=== PATIENT | female | born 1950 | race Caucasian/White ===

== ENCOUNTER 2019-08-29 11:02 | Inpatient (IN) ==
[2019-08-29] MEDS ORDERED: *HR* OxyCODONE Immed Rel 5 MG TABLET PO PRN (20:42)
[2019-08-29] MEDS ORDERED: Nicotine 2 MG GUM PO PRN (20:42)
[2019-08-29] MEDS ORDERED: Albuterol 2.5 MG/3 ML NEBULIZER IH PRN (20:42)
[2019-08-29] MEDS ORDERED: NON-FORMULARY MEDICATION 1 EACH EACH (Naloxone 4 MG) NS SCH (20:45)
[2019-08-29] MEDS ORDERED: ERTAPENEM 1 GM IV SCH (20:45)
[2019-08-29] MEDS ORDERED: Ondansetron ODT 4 MG TAB.RAPDIS SL PRN (20:48)
[2019-08-29] MEDS ORDERED: Vancomycin 750 MG VIAL IVPB SCH (21:00)
[2019-08-29] MEDS: Melatonin 3 MG TABLET PO SCH (21:36)
[2019-08-29] MEDS: Aspirin Enteric Coated 81 MG Tablet PO SCH (21:36)
[2019-08-29] MEDS: Pregabalin 50 MG CAPSULE PO SCH (21:37)
[2019-08-29] MEDS: *HR* OxyCODONE Immed Rel 5 MG TABLET PO PRN (21:38)
[2019-08-29] MEDS: traZODone 50 MG TABLET PO SCH (21:38)
[2019-08-29] MEDS: Ibuprofen 600 MG TABLET PO PRN (21:55)
[2019-08-29] MEDS: Vancomycin Oral Soln 125 MG/2.5 ML UDC PO SCH (22:17)
[2019-08-30] MEDS: Ibuprofen 600 MG TABLET PO PRN ×2 (06:03→20:47)
[2019-08-30] MEDS: *HR* OxyCODONE Immed Rel 5 MG TABLET PO PRN ×4 (06:03→20:47)
[2019-08-30] MEDS ORDERED: Naloxone 0.4 MG/ML INJ IVP PRN (07:41)
[2019-08-30 08:30] LABS: Basophils # 0.1 K/mcL (0.0-0.2); Basophils % 1.1 %; Eosinophils # 1.9 K/mcL (0.0-0.6); Eosinophils % 28.9 %; Hematocrit 39.5 % (35.3-44.9); Hemoglobin 12.3 g/dL (11.5-15.4); Immature Granulocytes % 0.2 % (0-4); Lymphocytes # 1.9 K/mcL (0.6-4.6); Lymphocytes % 27.9 %; Mean Corpuscular HGB Conc 31.1 g/dL (31.6-35.5); Mean Corpuscular Hemoglobin 27.2 pg (28.0-33.3); Mean Corpuscular Volume 87.4 fL (83.0-100.0); Mean Platelet Volume 10.2 fL (9.4-12.4); Monocytes # 0.6 K/mcL (0.0-1.3); Monocytes % 9.7 %; Neutrophils # 2.1 K/mcL (1.6-8.9); Platelet Count 289 K/mcL (140-400); Red Blood Count 4.52 M/mcL (3.82-4.97); Red Cell Distribution Width 16.9 % (11.5-14.5); Segmented Neutrophils % 32.2 %; White Blood Count 6.6 K/mcL (4.3-11.1)
[2019-08-30] MEDS ORDERED: hydroCHLOROthiazide 25 MG TABLET PO SCH (09:00)
[2019-08-30 09:20] LABS: Alanine Aminotransferase 27 Units/L (7-52); Albumin 4.2 g/dL (3.5-5.7); Albumin/Globulin Ratio 1.2 (1.1-2.2); Alkaline Phosphatase 115 Units/L (34-104); Aspartate Amino Transferase 26 Units/L (13-39); BUN/Creatinine Ratio 20 (6-26); Bilirubin,Total 0.4 mg/dL (0.3-1.0); Blood Urea Nitrogen 20 mg/dL (8-23); Calcium 10.5 mg/dL (8.6-10.3); Carbon Dioxide 28 mEq/L (23-29); Chloride 101 mEq/L (98-107); Globulin 3.5 g/dL (2.4-3.5); Glucose 103 mg/dL (70-105); Magnesium 2.2 mg/dL (1.6-2.6); Osmolality,Calculated 289 (280-300); Phosphorous 4.4 mg/dL (2.7-4.5); Potassium 4.1 mEq/L (3.5-5.1); Sodium 138 mEq/L (136-145); Total Protein 7.7 g/dL (6.4-8.9); eGFR For African Americans > 60 (> 60); eGFR For Non-African Americans 57 (> 60)
[2019-08-30] MEDS: Isosorbide MONOnitrate (24 HR) 60 MG TAB.ER.24H PO SCH (09:55)
[2019-08-30] MEDS: Venlafaxine XR (24 HR) 37.5 MG CAP.ER.24H PO SCH (09:55)
[2019-08-30] MEDS: Pregabalin 50 MG CAPSULE PO SCH ×2 (09:55→20:47)
[2019-08-30] MEDS: Vancomycin Oral Soln 125 MG/2.5 ML UDC PO SCH ×2 (09:56→20:47)
[2019-08-30] MEDS: Aspirin Enteric Coated 81 MG Tablet PO SCH ×2 (09:56→20:46)
[2019-08-30] MEDS: Lisinopril 20 MG TABLET PO SCH (09:56)
[2019-08-30] MEDS: Ascorbic Acid 500 MG TABLET PO SCH (09:56)
[2019-08-30] MEDS: Ertapenem 1,000 MG in 0.9 % Sodium Chloride Mini Bag 100 ML IVPB SCH (09:57)
[2019-08-30] MEDS: Trolamine Salicylate/Aloe Vera 85 APPL/85 GM TUBE TP SCH (10:01)
[2019-08-30] MEDS: Micafungin 100 MG in 0.9 % Sodium Chloride Mini Bag 100 ML IVPB SCH (12:24)
[2019-08-30] MEDS: *HR* Heparin 5,000 UNIT/ML VIAL SQ SCH (18:19)
[2019-08-30] MEDS: traZODone 50 MG TABLET PO SCH (20:46)
[2019-08-30] MEDS: Lactobacillus 1 EACH CAP.SPRINK PO SCH (20:47)
[2019-08-30] MEDS: Melatonin 3 MG TABLET PO SCH (20:47)
[2019-08-31] MEDS: Venlafaxine XR (24 HR) 37.5 MG CAP.ER.24H PO SCH (06:14)
[2019-08-31] MEDS: *HR* Heparin 5,000 UNIT/ML VIAL SQ SCH ×2 (06:14→16:38)
[2019-08-31] MEDS: Ibuprofen 600 MG TABLET PO PRN ×2 (06:15→16:37)
[2019-08-31] MEDS: *HR* OxyCODONE Immed Rel 5 MG TABLET PO PRN ×4 (06:15→21:15)
[2019-08-31] MEDS: Vancomycin Oral Soln 125 MG/2.5 ML UDC PO SCH ×2 (09:18→21:17)
[2019-08-31] MEDS: Micafungin 100 MG in 0.9 % Sodium Chloride Mini Bag 100 ML IVPB SCH (09:18)
[2019-08-31] MEDS: Aspirin Enteric Coated 81 MG Tablet PO SCH ×2 (09:20→21:15)
[2019-08-31] MEDS: Isosorbide MONOnitrate (24 HR) 60 MG TAB.ER.24H PO SCH (09:20)
[2019-08-31] MEDS: Ertapenem 1,000 MG in 0.9 % Sodium Chloride Mini Bag 100 ML IVPB SCH (09:20)
[2019-08-31] MEDS: Lisinopril 20 MG TABLET PO SCH (09:21)
[2019-08-31] MEDS: Pregabalin 50 MG CAPSULE PO SCH ×2 (09:21→21:15)
[2019-08-31] MEDS: Ascorbic Acid 500 MG TABLET PO SCH (09:21)
[2019-08-31] MEDS: Lactobacillus 1 EACH CAP.SPRINK PO SCH ×2 (09:21→21:15)
[2019-08-31] MEDS: Trolamine Salicylate/Aloe Vera 85 APPL/85 GM TUBE TP SCH (09:22)
[2019-08-31] MEDS: Acetaminophen 325 MG TABLET PO PRN (10:18)
[2019-08-31] MEDS: Melatonin 3 MG TABLET PO SCH (21:15)
[2019-08-31] MEDS: traZODone 50 MG TABLET PO SCH (21:16)
[2019-09-01] MEDS: *HR* Heparin 5,000 UNIT/ML VIAL SQ SCH ×2 (06:48→17:32)
[2019-09-01] MEDS: *HR* OxyCODONE Immed Rel 5 MG TABLET PO PRN ×4 (07:04→22:08)
[2019-09-01] MEDS: Ertapenem 1,000 MG in 0.9 % Sodium Chloride Mini Bag 100 ML IVPB SCH (07:53)
[2019-09-01 08:18] LABS: eGFR For African Americans > 60 (> 60); eGFR For Non-African Americans > 60 (> 60)
[2019-09-01] MEDS: Ascorbic Acid 500 MG TABLET PO SCH (09:07)
[2019-09-01] MEDS: Pregabalin 50 MG CAPSULE PO SCH ×2 (09:07→22:10)
[2019-09-01] MEDS: Venlafaxine XR (24 HR) 37.5 MG CAP.ER.24H PO SCH (09:07)
[2019-09-01] MEDS: Aspirin Enteric Coated 81 MG Tablet PO SCH ×2 (09:07→22:08)
[2019-09-01] MEDS: Isosorbide MONOnitrate (24 HR) 60 MG TAB.ER.24H PO SCH (09:08)
[2019-09-01] MEDS: Lisinopril 20 MG TABLET PO SCH (09:08)
[2019-09-01] MEDS: Lactobacillus 1 EACH CAP.SPRINK PO SCH ×2 (09:08→22:09)
[2019-09-01] MEDS: Vancomycin Oral Soln 125 MG/2.5 ML UDC PO SCH ×2 (09:09→22:10)
[2019-09-01] MEDS: Trolamine Salicylate/Aloe Vera 85 APPL/85 GM TUBE TP SCH (09:10)
[2019-09-01] MEDS: Micafungin 100 MG in 0.9 % Sodium Chloride Mini Bag 100 ML IVPB SCH (09:10)
[2019-09-01] MEDS: Melatonin 3 MG TABLET PO SCH (22:09)
[2019-09-01] MEDS: traZODone 50 MG TABLET PO SCH (22:10)
[2019-09-01] MEDS: Ibuprofen 600 MG TABLET PO PRN (22:11)
[2019-09-02 06:12] LABS: eGFR For African Americans > 60 (> 60); eGFR For Non-African Americans > 60 (> 60)
[2019-09-02] MEDS: *HR* Heparin 5,000 UNIT/ML VIAL SQ SCH ×2 (06:26→17:02)
[2019-09-02] MEDS: Lisinopril 20 MG TABLET PO SCH (08:26)
[2019-09-02] MEDS: Vancomycin Oral Soln 125 MG/2.5 ML UDC PO SCH ×2 (08:55→22:38)
[2019-09-02] MEDS: Lactobacillus 1 EACH CAP.SPRINK PO SCH ×2 (08:58→20:57)
[2019-09-02] MEDS: Ascorbic Acid 500 MG TABLET PO SCH (08:58)
[2019-09-02] MEDS: Aspirin Enteric Coated 81 MG Tablet PO SCH ×2 (08:58→20:57)
[2019-09-02] MEDS: Venlafaxine XR (24 HR) 37.5 MG CAP.ER.24H PO SCH (08:58)
[2019-09-02] MEDS: *HR* OxyCODONE Immed Rel 5 MG TABLET PO PRN ×4 (08:59→22:03)
[2019-09-02] MEDS: Pregabalin 50 MG CAPSULE PO SCH ×2 (08:59→20:57)
[2019-09-02] MEDS: Isosorbide MONOnitrate (24 HR) 60 MG TAB.ER.24H PO SCH (08:59)
[2019-09-02] MEDS: Ertapenem 1,000 MG in 0.9 % Sodium Chloride Mini Bag 100 ML IVPB SCH (08:59)
[2019-09-02] MEDS: Trolamine Salicylate/Aloe Vera 85 APPL/85 GM TUBE TP SCH (09:13)
[2019-09-02] MEDS: Micafungin 100 MG in 0.9 % Sodium Chloride Mini Bag 100 ML IVPB SCH (10:32)
[2019-09-02] MEDS ORDERED: Lisinopril 20 MG TABLET PO STA (18:11)
[2019-09-02] MEDS: Melatonin 3 MG TABLET PO SCH (20:56)
[2019-09-02] MEDS: traZODone 50 MG TABLET PO SCH (20:57)
[2019-09-03] MEDS: *HR* OxyCODONE Immed Rel 5 MG TABLET PO PRN ×5 (03:02→21:38)
[2019-09-03] MEDS: *HR* Heparin 5,000 UNIT/ML VIAL SQ SCH ×2 (05:47→17:06)
[2019-09-03 05:56] LABS: Hematocrit 32.5 % (35.3-44.9); Hemoglobin 10.1 g/dL (11.5-15.4); Mean Corpuscular HGB Conc 31.1 g/dL (31.6-35.5); Mean Corpuscular Hemoglobin 27.3 pg (28.0-33.3); Mean Corpuscular Volume 87.8 fL (83.0-100.0); Mean Platelet Volume 10.7 fL (9.4-12.4); Platelet Count 208 K/mcL (140-400); Red Cell Distribution Width 16.3 % (11.5-14.5); White Blood Count 5.4 K/mcL (4.3-11.1)
[2019-09-03 06:11] LABS: Alanine Aminotransferase 23 Units/L (7-52); Albumin 3.6 g/dL (3.5-5.7); Albumin/Globulin Ratio 1.3 (1.1-2.2); Alkaline Phosphatase 89 Units/L (34-104); Aspartate Amino Transferase 21 Units/L (13-39); BUN/Creatinine Ratio 21 (6-26); Bilirubin,Total 0.3 mg/dL (0.3-1.0); Blood Urea Nitrogen 18 mg/dL (8-23); Calcium 9.7 mg/dL (8.6-10.3); Carbon Dioxide 29 mEq/L (23-29); Chloride 104 mEq/L (98-107); Globulin 2.7 g/dL (2.4-3.5); Glucose 104 mg/dL (70-105); Magnesium 2.3 mg/dL (1.6-2.6); Osmolality,Calculated 290 (280-300); Potassium 4.2 mEq/L (3.5-5.1); Sodium 139 mEq/L (136-145); Total Protein 6.3 g/dL (6.4-8.9); eGFR For African Americans > 60 (> 60); eGFR For Non-African Americans > 60 (> 60)
[2019-09-03] MEDS: Venlafaxine XR (24 HR) 37.5 MG CAP.ER.24H PO SCH (08:21)
[2019-09-03] MEDS: Isosorbide MONOnitrate (24 HR) 60 MG TAB.ER.24H PO SCH (08:21)
[2019-09-03] MEDS: Lactobacillus 1 EACH CAP.SPRINK PO SCH ×2 (08:22→20:15)
[2019-09-03] MEDS: Aspirin Enteric Coated 81 MG Tablet PO SCH ×2 (08:22→20:16)
[2019-09-03] MEDS: Pregabalin 50 MG CAPSULE PO SCH ×2 (08:22→20:16)
[2019-09-03] MEDS: Ascorbic Acid 500 MG TABLET PO SCH (08:22)
[2019-09-03] MEDS: Lisinopril 20 MG TABLET PO SCH (08:22)
[2019-09-03] MEDS: Trolamine Salicylate/Aloe Vera 85 APPL/85 GM TUBE TP SCH (08:23)
[2019-09-03] MEDS: Ertapenem 1,000 MG in 0.9 % Sodium Chloride Mini Bag 100 ML IVPB SCH (08:24)
[2019-09-03] MEDS: Vancomycin Oral Soln 125 MG/2.5 ML UDC PO SCH ×2 (08:24→20:16)
[2019-09-03] MEDS: Micafungin 100 MG in 0.9 % Sodium Chloride Mini Bag 100 ML IVPB SCH (10:13)
[2019-09-03 18:18] LABS: C-Reactive Protein 13 mg/L (Less than 10)
[2019-09-03] MEDS: Melatonin 3 MG TABLET PO SCH (20:15)
[2019-09-03] MEDS: traZODone 50 MG TABLET PO SCH (20:16)
[2019-09-04 05:59] LABS: eGFR For African Americans > 60 (> 60); eGFR For Non-African Americans > 60 (> 60)
[2019-09-04] MEDS: *HR* Heparin 5,000 UNIT/ML VIAL SQ SCH ×2 (06:24→16:26)
[2019-09-04] MEDS: *HR* OxyCODONE Immed Rel 5 MG TABLET PO PRN ×3 (09:43→21:35)
[2019-09-04] MEDS: Ascorbic Acid 500 MG TABLET PO SCH (09:44)
[2019-09-04] MEDS: Lisinopril 20 MG TABLET PO SCH (09:44)
[2019-09-04] MEDS: Pregabalin 50 MG CAPSULE PO SCH ×2 (09:44→21:35)
[2019-09-04] MEDS: Lactobacillus 1 EACH CAP.SPRINK PO SCH ×2 (09:44→21:34)
[2019-09-04] MEDS: Venlafaxine XR (24 HR) 37.5 MG CAP.ER.24H PO SCH (09:44)
[2019-09-04] MEDS: Aspirin Enteric Coated 81 MG Tablet PO SCH ×2 (09:44→21:34)
[2019-09-04] MEDS: Isosorbide MONOnitrate (24 HR) 60 MG TAB.ER.24H PO SCH (09:45)
[2019-09-04] MEDS: Ibuprofen 600 MG TABLET PO PRN (09:51)
[2019-09-04] MEDS: Ertapenem 1,000 MG in 0.9 % Sodium Chloride Mini Bag 100 ML IVPB SCH (10:03)
[2019-09-04] MEDS: Vancomycin Oral Soln 125 MG/2.5 ML UDC PO SCH ×2 (10:03→21:34)
[2019-09-04] MEDS: Trolamine Salicylate/Aloe Vera 85 APPL/85 GM TUBE TP SCH (10:06)
[2019-09-04] MEDS: Micafungin 100 MG in 0.9 % Sodium Chloride Mini Bag 100 ML IVPB SCH (10:06)
[2019-09-04] MEDS: Melatonin 3 MG TABLET PO SCH (21:35)
[2019-09-04] MEDS: traZODone 50 MG TABLET PO SCH (21:35)
[2019-09-05] MEDS: *HR* Heparin 5,000 UNIT/ML VIAL SQ SCH ×2 (05:29→17:41)
[2019-09-05 05:59] LABS: eGFR For African Americans > 60 (> 60); eGFR For Non-African Americans > 60 (> 60)
[2019-09-05] MEDS: *HR* OxyCODONE Immed Rel 5 MG TABLET PO PRN ×3 (08:29→22:02)
[2019-09-05] MEDS: Venlafaxine XR (24 HR) 37.5 MG CAP.ER.24H PO SCH (08:29)
[2019-09-05] MEDS: Lactobacillus 1 EACH CAP.SPRINK PO SCH ×2 (08:29→20:50)
[2019-09-05] MEDS: Lisinopril 20 MG TABLET PO SCH (08:30)
[2019-09-05] MEDS: Isosorbide MONOnitrate (24 HR) 60 MG TAB.ER.24H PO SCH (08:30)
[2019-09-05] MEDS: Aspirin Enteric Coated 81 MG Tablet PO SCH ×2 (08:30→20:49)
[2019-09-05] MEDS: Pregabalin 50 MG CAPSULE PO SCH ×2 (08:30→20:50)
[2019-09-05] MEDS: Ascorbic Acid 500 MG TABLET PO SCH (08:30)
[2019-09-05] MEDS: Micafungin 100 MG in 0.9 % Sodium Chloride Mini Bag 100 ML IVPB SCH (08:30)
[2019-09-05] MEDS: Ertapenem 1,000 MG in 0.9 % Sodium Chloride Mini Bag 100 ML IVPB SCH (08:31)
[2019-09-05] MEDS: Trolamine Salicylate/Aloe Vera 85 APPL/85 GM TUBE TP SCH (08:32)
[2019-09-05] MEDS: Vancomycin Oral Soln 125 MG/2.5 ML UDC PO SCH ×2 (08:32→20:52)
[2019-09-05] MEDS: Ibuprofen 600 MG TABLET PO PRN (11:54)
[2019-09-05] MEDS: traZODone 50 MG TABLET PO SCH (20:49)
[2019-09-05] MEDS: Melatonin 3 MG TABLET PO SCH (20:51)
[2019-09-06] MEDS: *HR* Heparin 5,000 UNIT/ML VIAL SQ SCH ×2 (05:47→17:53)
[2019-09-06 06:00] LABS: eGFR For African Americans > 60 (> 60); eGFR For Non-African Americans > 60 (> 60)
[2019-09-06] MEDS: Lactobacillus 1 EACH CAP.SPRINK PO SCH ×2 (08:55→21:50)
[2019-09-06] MEDS: Isosorbide MONOnitrate (24 HR) 60 MG TAB.ER.24H PO SCH (08:55)
[2019-09-06] MEDS: Aspirin Enteric Coated 81 MG Tablet PO SCH ×2 (08:55→21:49)
[2019-09-06] MEDS: *HR* OxyCODONE Immed Rel 5 MG TABLET PO PRN ×3 (08:56→21:50)
[2019-09-06] MEDS: Ascorbic Acid 500 MG TABLET PO SCH (08:56)
[2019-09-06] MEDS: Pregabalin 50 MG CAPSULE PO SCH ×2 (08:56→21:49)
[2019-09-06] MEDS: Venlafaxine XR (24 HR) 37.5 MG CAP.ER.24H PO SCH (08:56)
[2019-09-06] MEDS: Lisinopril 20 MG TABLET PO SCH (08:56)
[2019-09-06] MEDS: Vancomycin Oral Soln 125 MG/2.5 ML UDC PO SCH ×2 (08:59→21:51)
[2019-09-06] MEDS: Ertapenem 1,000 MG in 0.9 % Sodium Chloride Mini Bag 100 ML IVPB SCH (09:00)
[2019-09-06] MEDS: Micafungin 100 MG in 0.9 % Sodium Chloride Mini Bag 100 ML IVPB SCH (09:01)
[2019-09-06] MEDS: Trolamine Salicylate/Aloe Vera 85 APPL/85 GM TUBE TP SCH (09:02)
[2019-09-06 20:24] LABS: Hematocrit 34.5 % (35.3-44.9); Mean Corpuscular HGB Conc 31.9 g/dL (31.6-35.5); Mean Corpuscular Hemoglobin 27.6 pg (28.0-33.3); Mean Corpuscular Volume 86.7 fL (83.0-100.0); Platelet Count 256 K/mcL (140-400); Red Blood Count 3.98 M/mcL (3.82-4.97)
[2019-09-06 20:41] LABS: Alanine Aminotransferase 29 Units/L (7-52); Albumin 4.2 g/dL (3.5-5.7); Albumin/Globulin Ratio 1.3 (1.1-2.2); Alkaline Phosphatase 111 Units/L (34-104); Aspartate Amino Transferase 23 Units/L (13-39); BUN/Creatinine Ratio 21 (6-26); Bilirubin,Total 0.4 mg/dL (0.3-1.0); Blood Urea Nitrogen 19 mg/dL (8-23); Carbon Dioxide 28 mEq/L (23-29); Chloride 102 mEq/L (98-107); Globulin 3.2 g/dL (2.4-3.5); Glucose 120 mg/dL (70-105); Magnesium 2.1 mg/dL (1.6-2.6); Osmolality,Calculated 287 (280-300); Potassium 4.2 mEq/L (3.5-5.1); Sodium 137 mEq/L (136-145); Total Protein 7.4 g/dL (6.4-8.9); eGFR For African Americans > 60 (> 60); eGFR For Non-African Americans > 60 (> 60)
[2019-09-06] MEDS: traZODone 50 MG TABLET PO SCH (21:50)
[2019-09-06] MEDS: Melatonin 3 MG TABLET PO SCH (21:50)
[2019-09-07 05:51] LABS: eGFR For African Americans > 60 (> 60); eGFR For Non-African Americans > 60 (> 60)
[2019-09-07] MEDS: *HR* Heparin 5,000 UNIT/ML VIAL SQ SCH ×2 (05:56→17:23)
[2019-09-07] MEDS: *HR* OxyCODONE Immed Rel 5 MG TABLET PO PRN ×4 (06:58→21:55)
[2019-09-07] MEDS: Ertapenem 1,000 MG in 0.9 % Sodium Chloride Mini Bag 100 ML IVPB SCH (08:50)
[2019-09-07] MEDS: Pregabalin 50 MG CAPSULE PO SCH ×2 (08:52→21:21)
[2019-09-07] MEDS: Aspirin Enteric Coated 81 MG Tablet PO SCH ×2 (08:52→21:21)
[2019-09-07] MEDS: Vancomycin Oral Soln 125 MG/2.5 ML UDC PO SCH ×2 (08:52→21:22)
[2019-09-07] MEDS: Isosorbide MONOnitrate (24 HR) 60 MG TAB.ER.24H PO SCH (08:52)
[2019-09-07] MEDS: Ascorbic Acid 500 MG TABLET PO SCH (08:52)
[2019-09-07] MEDS: Trolamine Salicylate/Aloe Vera 85 APPL/85 GM TUBE TP SCH (08:53)
[2019-09-07] MEDS: Venlafaxine XR (24 HR) 37.5 MG CAP.ER.24H PO SCH (08:53)
[2019-09-07] MEDS: Lactobacillus 1 EACH CAP.SPRINK PO SCH ×2 (08:53→21:21)
[2019-09-07] MEDS: Lisinopril 20 MG TABLET PO SCH (08:53)
[2019-09-07] MEDS: Micafungin 100 MG in 0.9 % Sodium Chloride Mini Bag 100 ML IVPB SCH (10:09)
[2019-09-07] MEDS: Ibuprofen 600 MG TABLET PO PRN (19:05)
[2019-09-07] MEDS: Melatonin 3 MG TABLET PO SCH (21:21)
[2019-09-07] MEDS: traZODone 50 MG TABLET PO SCH (21:22)
[2019-09-08] MEDS: *HR* OxyCODONE Immed Rel 5 MG TABLET PO PRN ×4 (05:31→23:47)
[2019-09-08] MEDS: *HR* Heparin 5,000 UNIT/ML VIAL SQ SCH ×2 (05:31→18:01)
[2019-09-08 06:19] LABS: eGFR For African Americans > 60 (> 60); eGFR For Non-African Americans > 60 (> 60)
[2019-09-08] MEDS: Ertapenem 1,000 MG in 0.9 % Sodium Chloride Mini Bag 100 ML IVPB SCH (08:10)
[2019-09-08] MEDS: Isosorbide MONOnitrate (24 HR) 60 MG TAB.ER.24H PO SCH (09:51)
[2019-09-08] MEDS: Pregabalin 50 MG CAPSULE PO SCH ×2 (09:52→21:41)
[2019-09-08] MEDS: Ascorbic Acid 500 MG TABLET PO SCH (09:52)
[2019-09-08] MEDS: Venlafaxine XR (24 HR) 37.5 MG CAP.ER.24H PO SCH (09:52)
[2019-09-08] MEDS: Aspirin Enteric Coated 81 MG Tablet PO SCH ×2 (09:52→21:41)
[2019-09-08] MEDS: Lisinopril 20 MG TABLET PO SCH (09:52)
[2019-09-08] MEDS: Lactobacillus 1 EACH CAP.SPRINK PO SCH ×2 (09:52→21:41)
[2019-09-08] MEDS: Vancomycin Oral Soln 125 MG/2.5 ML UDC PO SCH ×2 (09:53→21:42)
[2019-09-08] MEDS: Micafungin 100 MG in 0.9 % Sodium Chloride Mini Bag 100 ML IVPB SCH (09:54)
[2019-09-08] MEDS: Trolamine Salicylate/Aloe Vera 85 APPL/85 GM TUBE TP SCH (09:59)
[2019-09-08] MEDS: Ibuprofen 600 MG TABLET PO PRN (19:38)
[2019-09-08] MEDS: traZODone 50 MG TABLET PO SCH (21:41)
[2019-09-08] MEDS: Melatonin 3 MG TABLET PO SCH (21:41)
[2019-09-08] MEDS: Loratadine 10 MG TABLET PO SCH (21:41)
[2019-09-09] MEDS: Ibuprofen 600 MG TABLET PO PRN ×2 (04:29→17:01)
[2019-09-09] MEDS: *HR* OxyCODONE Immed Rel 5 MG TABLET PO PRN ×4 (04:30→22:15)
[2019-09-09] MEDS: *HR* Heparin 5,000 UNIT/ML VIAL SQ SCH ×2 (04:30→17:09)
[2019-09-09 06:10] LABS: eGFR For African Americans > 60 (> 60); eGFR For Non-African Americans 59 (> 60)
[2019-09-09] MEDS: Lisinopril 20 MG TABLET PO SCH (08:25)
[2019-09-09] MEDS: Ascorbic Acid 500 MG TABLET PO SCH (08:25)
[2019-09-09] MEDS: Isosorbide MONOnitrate (24 HR) 60 MG TAB.ER.24H PO SCH (08:26)
[2019-09-09] MEDS: Pregabalin 50 MG CAPSULE PO SCH ×2 (08:26→22:12)
[2019-09-09] MEDS: Venlafaxine XR (24 HR) 37.5 MG CAP.ER.24H PO SCH (08:26)
[2019-09-09] MEDS: Aspirin Enteric Coated 81 MG Tablet PO SCH ×2 (08:26→22:12)
[2019-09-09] MEDS: Lactobacillus 1 EACH CAP.SPRINK PO SCH ×2 (08:26→22:13)
[2019-09-09] MEDS: Vancomycin Oral Soln 125 MG/2.5 ML UDC PO SCH ×2 (08:26→22:13)
[2019-09-09] MEDS: Ertapenem 1,000 MG in 0.9 % Sodium Chloride Mini Bag 100 ML IVPB SCH (08:27)
[2019-09-09] MEDS: Trolamine Salicylate/Aloe Vera 85 APPL/85 GM TUBE TP SCH (08:32)
[2019-09-09] MEDS: Micafungin 100 MG in 0.9 % Sodium Chloride Mini Bag 100 ML IVPB SCH (09:45)
[2019-09-09] MEDS: Loratadine 10 MG TABLET PO SCH (22:12)
[2019-09-09] MEDS: Melatonin 3 MG TABLET PO SCH (22:13)
[2019-09-09] MEDS: traZODone 50 MG TABLET PO SCH (22:13)
[2019-09-10] MEDS: *HR* OxyCODONE Immed Rel 5 MG TABLET PO PRN ×4 (01:34→22:56)
[2019-09-10] MEDS: Ibuprofen 600 MG TABLET PO PRN ×2 (01:34→17:02)
[2019-09-10] MEDS: *HR* Heparin 5,000 UNIT/ML VIAL SQ SCH ×2 (07:01→17:02)
[2019-09-10] MEDS: Venlafaxine XR (24 HR) 37.5 MG CAP.ER.24H PO SCH (08:48)
[2019-09-10] MEDS: Isosorbide MONOnitrate (24 HR) 60 MG TAB.ER.24H PO SCH (08:48)
[2019-09-10] MEDS: Ascorbic Acid 500 MG TABLET PO SCH (08:48)
[2019-09-10] MEDS: Aspirin Enteric Coated 81 MG Tablet PO SCH ×2 (08:48→22:56)
[2019-09-10] MEDS: Pregabalin 50 MG CAPSULE PO SCH ×2 (08:49→22:56)
[2019-09-10] MEDS: Lisinopril 20 MG TABLET PO SCH (08:49)
[2019-09-10] MEDS: Ertapenem 1,000 MG in 0.9 % Sodium Chloride Mini Bag 100 ML IVPB SCH (08:49)
[2019-09-10] MEDS: Vancomycin Oral Soln 125 MG/2.5 ML UDC PO SCH ×2 (08:49→22:56)
[2019-09-10] MEDS: Lactobacillus 1 EACH CAP.SPRINK PO SCH ×2 (08:49→22:56)
[2019-09-10] MEDS: Trolamine Salicylate/Aloe Vera 85 APPL/85 GM TUBE TP SCH (08:50)
[2019-09-10] MEDS: Micafungin 100 MG in 0.9 % Sodium Chloride Mini Bag 100 ML IVPB SCH (10:09)
[2019-09-10] MEDS: traZODone 50 MG TABLET PO SCH (22:56)
[2019-09-10] MEDS: Loratadine 10 MG TABLET PO SCH (22:56)
[2019-09-10] MEDS: Melatonin 3 MG TABLET PO SCH (22:56)
[2019-09-10] MEDS: Vancomycin 500 MG in 0.9 % Sodium Chloride 250 ML IVPB SCH (22:57)
[2019-09-11] MEDS: Ibuprofen 600 MG TABLET PO PRN ×2 (02:28→18:09)
[2019-09-11] MEDS: *HR* OxyCODONE Immed Rel 5 MG TABLET PO PRN ×5 (02:36→20:54)
[2019-09-11] MEDS: *HR* Heparin 5,000 UNIT/ML VIAL SQ SCH ×2 (06:38→18:09)
[2019-09-11] MEDS: Pregabalin 50 MG CAPSULE PO SCH ×2 (08:15→20:53)
[2019-09-11] MEDS: Isosorbide MONOnitrate (24 HR) 60 MG TAB.ER.24H PO SCH (08:15)
[2019-09-11] MEDS: Ascorbic Acid 500 MG TABLET PO SCH (08:16)
[2019-09-11] MEDS: Aspirin Enteric Coated 81 MG Tablet PO SCH ×2 (08:16→20:53)
[2019-09-11] MEDS: Lisinopril 20 MG TABLET PO SCH (08:16)
[2019-09-11] MEDS: Ertapenem 1,000 MG in 0.9 % Sodium Chloride Mini Bag 100 ML IVPB SCH (08:16)
[2019-09-11] MEDS: Lactobacillus 1 EACH CAP.SPRINK PO SCH ×2 (08:16→20:53)
[2019-09-11] MEDS: Vancomycin Oral Soln 125 MG/2.5 ML UDC PO SCH ×2 (08:17→20:54)
[2019-09-11] MEDS: Trolamine Salicylate/Aloe Vera 85 APPL/85 GM TUBE TP SCH (08:23)
[2019-09-11] MEDS: Micafungin 100 MG in 0.9 % Sodium Chloride Mini Bag 100 ML IVPB SCH (09:58)
[2019-09-11] MEDS: Venlafaxine XR (24 HR) 37.5 MG CAP.ER.24H PO SCH (09:58)
[2019-09-11] MEDS: traZODone 50 MG TABLET PO SCH (20:53)
[2019-09-11] MEDS: Melatonin 3 MG TABLET PO SCH (20:53)
[2019-09-11] MEDS: Vancomycin 500 MG in 0.9 % Sodium Chloride 250 ML IVPB SCH (20:54)
[2019-09-11] MEDS: Loratadine 10 MG TABLET PO SCH (20:54)
[2019-09-12] MEDS: *HR* Heparin 5,000 UNIT/ML VIAL SQ SCH ×2 (05:21→18:28)
[2019-09-12] MEDS: *HR* OxyCODONE Immed Rel 5 MG TABLET PO PRN ×4 (05:21→20:57)
[2019-09-12 05:46] LABS: eGFR For African Americans > 60 (> 60); eGFR For Non-African Americans 59 (> 60)
[2019-09-12] MEDS: Ascorbic Acid 500 MG TABLET PO SCH (09:37)
[2019-09-12] MEDS: Lisinopril 20 MG TABLET PO SCH (09:37)
[2019-09-12] MEDS: Lactobacillus 1 EACH CAP.SPRINK PO SCH ×2 (09:37→20:55)
[2019-09-12] MEDS: Aspirin Enteric Coated 81 MG Tablet PO SCH ×2 (09:37→20:53)
[2019-09-12] MEDS: Vancomycin Oral Soln 125 MG/2.5 ML UDC PO SCH ×2 (09:37→20:57)
[2019-09-12] MEDS: Isosorbide MONOnitrate (24 HR) 60 MG TAB.ER.24H PO SCH (09:37)
[2019-09-12] MEDS: Venlafaxine XR (24 HR) 37.5 MG CAP.ER.24H PO SCH (09:37)
[2019-09-12] MEDS: Pregabalin 50 MG CAPSULE PO SCH ×2 (09:37→20:55)
[2019-09-12] MEDS: Ertapenem 1,000 MG in 0.9 % Sodium Chloride Mini Bag 100 ML IVPB SCH (09:38)
[2019-09-12] MEDS: Trolamine Salicylate/Aloe Vera 85 APPL/85 GM TUBE TP SCH (09:39)
[2019-09-12] MEDS: Ibuprofen 600 MG TABLET PO PRN ×2 (10:03→18:29)
[2019-09-12] MEDS: Micafungin 100 MG in 0.9 % Sodium Chloride Mini Bag 100 ML IVPB SCH (12:25)
[2019-09-12] MEDS: Loratadine 10 MG TABLET PO SCH (20:55)
[2019-09-12] MEDS: Melatonin 3 MG TABLET PO SCH (20:56)
[2019-09-12] MEDS: traZODone 50 MG TABLET PO SCH (20:57)
[2019-09-12] MEDS: Vancomycin 500 MG in 0.9 % Sodium Chloride 250 ML IVPB SCH (20:59)
[2019-09-13] MEDS: *HR* OxyCODONE Immed Rel 5 MG TABLET PO PRN ×4 (06:11→21:11)
[2019-09-13] MEDS: *HR* Heparin 5,000 UNIT/ML VIAL SQ SCH ×2 (06:11→17:41)
[2019-09-13] MEDS: Lactobacillus 1 EACH CAP.SPRINK PO SCH ×2 (08:31→21:10)
[2019-09-13] MEDS: Lisinopril 20 MG TABLET PO SCH (08:32)
[2019-09-13] MEDS: Ascorbic Acid 500 MG TABLET PO SCH (08:32)
[2019-09-13] MEDS: Isosorbide MONOnitrate (24 HR) 60 MG TAB.ER.24H PO SCH (08:32)
[2019-09-13] MEDS: Aspirin Enteric Coated 81 MG Tablet PO SCH ×2 (08:32→21:10)
[2019-09-13] MEDS: Venlafaxine XR (24 HR) 37.5 MG CAP.ER.24H PO SCH (08:32)
[2019-09-13] MEDS: Trolamine Salicylate/Aloe Vera 85 APPL/85 GM TUBE TP SCH (08:33)
[2019-09-13] MEDS: Vancomycin Oral Soln 125 MG/2.5 ML UDC PO SCH ×2 (08:34→21:47)
[2019-09-13] MEDS: Ertapenem 1,000 MG in 0.9 % Sodium Chloride Mini Bag 100 ML IVPB SCH (08:34)
[2019-09-13] MEDS: Micafungin 100 MG in 0.9 % Sodium Chloride Mini Bag 100 ML IVPB SCH (10:23)
[2019-09-13] MEDS: Ibuprofen 600 MG TABLET PO PRN (17:41)
[2019-09-13] MEDS: Loratadine 10 MG TABLET PO SCH (21:10)
[2019-09-13] MEDS: Melatonin 3 MG TABLET PO SCH (21:11)
[2019-09-13] MEDS: traZODone 50 MG TABLET PO SCH (21:11)
[2019-09-13] MEDS: Vancomycin 500 MG in 0.9 % Sodium Chloride 250 ML IVPB SCH (21:50)
[2019-09-14] MEDS: *HR* Heparin 5,000 UNIT/ML VIAL SQ SCH ×2 (05:12→17:32)
[2019-09-14] MEDS: *HR* OxyCODONE Immed Rel 5 MG TABLET PO PRN ×4 (05:12→20:52)
[2019-09-14 06:19] LABS: eGFR For African Americans > 60 (> 60); eGFR For Non-African Americans > 60 (> 60)
[2019-09-14] MEDS: Isosorbide MONOnitrate (24 HR) 60 MG TAB.ER.24H PO SCH (08:18)
[2019-09-14] MEDS: Venlafaxine XR (24 HR) 37.5 MG CAP.ER.24H PO SCH (08:18)
[2019-09-14] MEDS: Ertapenem 1,000 MG in 0.9 % Sodium Chloride Mini Bag 100 ML IVPB SCH (08:18)
[2019-09-14] MEDS: Lisinopril 20 MG TABLET PO SCH (08:18)
[2019-09-14] MEDS: Vancomycin Oral Soln 125 MG/2.5 ML UDC PO SCH ×2 (08:18→20:53)
[2019-09-14] MEDS: Lactobacillus 1 EACH CAP.SPRINK PO SCH ×2 (08:18→20:53)
[2019-09-14] MEDS: Aspirin Enteric Coated 81 MG Tablet PO SCH ×2 (08:18→20:53)
[2019-09-14] MEDS: Trolamine Salicylate/Aloe Vera 85 APPL/85 GM TUBE TP SCH (08:19)
[2019-09-14] MEDS: Ascorbic Acid 500 MG TABLET PO SCH (08:19)
[2019-09-14] MEDS: Micafungin 100 MG in 0.9 % Sodium Chloride Mini Bag 100 ML IVPB SCH (09:25)
[2019-09-14] MEDS: Ibuprofen 600 MG TABLET PO PRN ×2 (12:15→20:52)
[2019-09-14] MEDS ORDERED: hydrOXYzine pamoate 25 MG CAPSULE PO ONE (16:14)
[2019-09-14 16:35] LABS: Thyroid Stimulating Hormone 3.229 mcIU/mL (0.340-5.600)
[2019-09-14] MEDS: Melatonin 3 MG TABLET PO SCH (20:52)
[2019-09-14] MEDS: traZODone 50 MG TABLET PO SCH (20:53)
[2019-09-14] MEDS: Vancomycin 500 MG in 0.9 % Sodium Chloride 250 ML IVPB SCH (20:53)
[2019-09-14] MEDS: Loratadine 10 MG TABLET PO SCH (20:53)
[2019-09-15] MEDS: Venlafaxine XR (24 HR) 37.5 MG CAP.ER.24H PO SCH (06:23)
[2019-09-15] MEDS: *HR* OxyCODONE Immed Rel 5 MG TABLET PO PRN ×4 (06:24→21:06)
[2019-09-15] MEDS: Ibuprofen 600 MG TABLET PO PRN ×3 (06:24→21:06)
[2019-09-15] MEDS: *HR* Heparin 5,000 UNIT/ML VIAL SQ SCH ×2 (06:24→17:50)
[2019-09-15] MEDS ORDERED: Levothyroxine 25 MCG TABLET PO SCH (06:30)
[2019-09-15] MEDS: Ascorbic Acid 500 MG TABLET PO SCH (09:01)
[2019-09-15] MEDS: Aspirin Enteric Coated 81 MG Tablet PO SCH ×2 (09:01→21:07)
[2019-09-15] MEDS: Lisinopril 20 MG TABLET PO SCH (09:01)
[2019-09-15] MEDS: Lactobacillus 1 EACH CAP.SPRINK PO SCH ×2 (09:01→21:07)
[2019-09-15] MEDS: Isosorbide MONOnitrate (24 HR) 60 MG TAB.ER.24H PO SCH (09:01)
[2019-09-15] MEDS: Vancomycin Oral Soln 125 MG/2.5 ML UDC PO SCH ×2 (09:02→21:07)
[2019-09-15] MEDS: Ertapenem 1,000 MG in 0.9 % Sodium Chloride Mini Bag 100 ML IVPB SCH (09:02)
[2019-09-15] MEDS: Trolamine Salicylate/Aloe Vera 85 APPL/85 GM TUBE TP SCH (10:18)
[2019-09-15] MEDS: Micafungin 100 MG in 0.9 % Sodium Chloride Mini Bag 100 ML IVPB SCH (14:20)
[2019-09-15] MEDS: Loratadine 10 MG TABLET PO SCH (21:06)
[2019-09-15] MEDS: traZODone 50 MG TABLET PO SCH (21:06)
[2019-09-15] MEDS: Melatonin 3 MG TABLET PO SCH (21:07)
[2019-09-15] MEDS: Vancomycin 500 MG in 0.9 % Sodium Chloride 250 ML IVPB SCH (21:08)
[2019-09-16] MEDS: Venlafaxine XR (24 HR) 37.5 MG CAP.ER.24H PO SCH (06:31)
[2019-09-16] MEDS: *HR* Heparin 5,000 UNIT/ML VIAL SQ SCH ×2 (06:31→17:03)
[2019-09-16] MEDS: Levothyroxine 25 MCG TABLET PO SCH (06:32)
[2019-09-16] MEDS: *HR* OxyCODONE Immed Rel 5 MG TABLET PO PRN ×4 (06:32→21:00)
[2019-09-16] MEDS: Ibuprofen 600 MG TABLET PO PRN ×3 (06:33→20:59)
[2019-09-16] MEDS: Lactobacillus 1 EACH CAP.SPRINK PO SCH ×2 (09:18→21:00)
[2019-09-16] MEDS: Lisinopril 20 MG TABLET PO SCH (09:18)
[2019-09-16] MEDS: Ascorbic Acid 500 MG TABLET PO SCH (09:18)
[2019-09-16] MEDS: Isosorbide MONOnitrate (24 HR) 60 MG TAB.ER.24H PO SCH (09:18)
[2019-09-16] MEDS: Aspirin Enteric Coated 81 MG Tablet PO SCH ×2 (09:18→20:59)
[2019-09-16] MEDS: Vancomycin Oral Soln 125 MG/2.5 ML UDC PO SCH ×2 (09:19→20:59)
[2019-09-16] MEDS: Trolamine Salicylate/Aloe Vera 85 APPL/85 GM TUBE TP SCH (09:22)
[2019-09-16] MEDS: Ertapenem 1,000 MG in 0.9 % Sodium Chloride Mini Bag 100 ML IVPB SCH (09:25)
[2019-09-16 10:20] LABS: eGFR For African Americans > 60 (> 60); eGFR For Non-African Americans 53 (> 60)
[2019-09-16] MEDS: Micafungin 100 MG in 0.9 % Sodium Chloride Mini Bag 100 ML IVPB SCH (11:16)
[2019-09-16] MEDS: Melatonin 3 MG TABLET PO SCH (20:59)
[2019-09-16] MEDS: traZODone 50 MG TABLET PO SCH (21:00)
[2019-09-16] MEDS: Loratadine 10 MG TABLET PO SCH (21:00)
[2019-09-17] MEDS: *HR* Heparin 5,000 UNIT/ML VIAL SQ SCH ×2 (06:28→17:07)
[2019-09-17] MEDS: Ibuprofen 600 MG TABLET PO PRN ×2 (06:28→17:06)
[2019-09-17] MEDS: Levothyroxine 25 MCG TABLET PO SCH (06:29)
[2019-09-17] MEDS: *HR* OxyCODONE Immed Rel 5 MG TABLET PO PRN ×4 (06:29→18:58)
[2019-09-17] MEDS: Vancomycin 500 MG in 0.9 % Sodium Chloride 250 ML IVPB SCH ×2 (06:30→07:47)
[2019-09-17] MEDS: Ertapenem 1,000 MG in 0.9 % Sodium Chloride Mini Bag 100 ML IVPB SCH (08:03)
[2019-09-17] MEDS: Micafungin 100 MG in 0.9 % Sodium Chloride Mini Bag 100 ML IVPB SCH (09:37)
[2019-09-17] MEDS: Ascorbic Acid 500 MG TABLET PO SCH (09:38)
[2019-09-17] MEDS: Aspirin Enteric Coated 81 MG Tablet PO SCH ×2 (09:38→20:08)
[2019-09-17] MEDS: Trolamine Salicylate/Aloe Vera 85 APPL/85 GM TUBE TP SCH (09:38)
[2019-09-17] MEDS: Lisinopril 20 MG TABLET PO SCH (09:38)
[2019-09-17] MEDS: Venlafaxine XR (24 HR) 37.5 MG CAP.ER.24H PO SCH (09:38)
[2019-09-17] MEDS: Isosorbide MONOnitrate (24 HR) 60 MG TAB.ER.24H PO SCH (09:38)
[2019-09-17] MEDS: Vancomycin Oral Soln 125 MG/2.5 ML UDC PO SCH ×2 (09:38→20:08)
[2019-09-17] MEDS: Lactobacillus 1 EACH CAP.SPRINK PO SCH ×2 (09:38→20:08)
[2019-09-17] MEDS: Melatonin 3 MG TABLET PO SCH (20:09)
[2019-09-17] MEDS: traZODone 50 MG TABLET PO SCH (20:09)
[2019-09-17] MEDS ORDERED: ZYRTEC 10 MG PO SCH (21:00)
[2019-09-18] MEDS: *HR* Heparin 5,000 UNIT/ML VIAL SQ SCH ×2 (05:42→18:17)
[2019-09-18] MEDS: *HR* OxyCODONE Immed Rel 5 MG TABLET PO PRN ×4 (05:43→21:55)
[2019-09-18] MEDS: Levothyroxine 25 MCG TABLET PO SCH (05:43)
[2019-09-18] MEDS: Ibuprofen 600 MG TABLET PO PRN ×3 (05:43→18:17)
[2019-09-18 07:33] LABS: eGFR For African Americans > 60 (> 60); eGFR For Non-African Americans > 60 (> 60)
[2019-09-18] MEDS: Vancomycin 500 MG in 0.9 % Sodium Chloride 250 ML IVPB SCH (07:49)
[2019-09-18] MEDS: Isosorbide MONOnitrate (24 HR) 60 MG TAB.ER.24H PO SCH (10:06)
[2019-09-18] MEDS: Aspirin Enteric Coated 81 MG Tablet PO SCH ×2 (10:06→21:53)
[2019-09-18] MEDS: Ascorbic Acid 500 MG TABLET PO SCH (10:06)
[2019-09-18] MEDS: Loratadine 10 MG TABLET PO SCH (10:06)
[2019-09-18] MEDS: Lactobacillus 1 EACH CAP.SPRINK PO SCH ×2 (10:06→21:54)
[2019-09-18] MEDS: Venlafaxine XR (24 HR) 37.5 MG CAP.ER.24H PO SCH (10:06)
[2019-09-18] MEDS: Lisinopril 20 MG TABLET PO SCH (10:06)
[2019-09-18] MEDS: Vancomycin Oral Soln 125 MG/2.5 ML UDC PO SCH ×2 (10:07→21:54)
[2019-09-18] MEDS: Trolamine Salicylate/Aloe Vera 85 APPL/85 GM TUBE TP SCH (10:07)
[2019-09-18] MEDS: Ertapenem 1,000 MG in 0.9 % Sodium Chloride Mini Bag 100 ML IVPB SCH (10:08)
[2019-09-18] MEDS: Micafungin 100 MG in 0.9 % Sodium Chloride Mini Bag 100 ML IVPB SCH (11:22)
[2019-09-18] MEDS: Pregabalin 50 MG CAPSULE PO SCH ×2 (11:23→21:54)
[2019-09-18] MEDS ORDERED: Pregabalin 50 MG CAPSULE PO SCH (21:00)
[2019-09-18] MEDS: traZODone 50 MG TABLET PO SCH (21:55)
[2019-09-18] MEDS: Melatonin 3 MG TABLET PO SCH (21:55)
[2019-09-19] MEDS: Levothyroxine 25 MCG TABLET PO SCH (06:11)
[2019-09-19] MEDS: *HR* Heparin 5,000 UNIT/ML VIAL SQ SCH ×2 (06:11→16:40)
[2019-09-19] MEDS: *HR* OxyCODONE Immed Rel 5 MG TABLET PO PRN ×4 (06:11→22:34)
[2019-09-19] MEDS: Vancomycin 500 MG in 0.9 % Sodium Chloride Mini Bag 100 ML IVPB SCH (06:12)
[2019-09-19] MEDS: Vancomycin Oral Soln 125 MG/2.5 ML UDC PO SCH ×2 (09:49→19:46)
[2019-09-19] MEDS: Venlafaxine XR (24 HR) 37.5 MG CAP.ER.24H PO SCH (09:50)
[2019-09-19] MEDS: Ibuprofen 600 MG TABLET PO PRN ×2 (09:51→16:40)
[2019-09-19] MEDS: Isosorbide MONOnitrate (24 HR) 60 MG TAB.ER.24H PO SCH (09:51)
[2019-09-19] MEDS: Pregabalin 50 MG CAPSULE PO SCH ×2 (09:51→19:43)
[2019-09-19] MEDS: Ascorbic Acid 500 MG TABLET PO SCH (09:51)
[2019-09-19] MEDS: Aspirin Enteric Coated 81 MG Tablet PO SCH ×2 (09:51→19:44)
[2019-09-19] MEDS: Lisinopril 20 MG TABLET PO SCH (09:52)
[2019-09-19] MEDS: Lactobacillus 1 EACH CAP.SPRINK PO SCH ×2 (09:52→19:45)
[2019-09-19] MEDS: Ertapenem 1,000 MG in 0.9 % Sodium Chloride Mini Bag 100 ML IVPB SCH (09:52)
[2019-09-19] MEDS: Loratadine 10 MG TABLET PO SCH (09:52)
[2019-09-19] MEDS: Trolamine Salicylate/Aloe Vera 85 APPL/85 GM TUBE TP SCH (09:53)
[2019-09-19] MEDS: Micafungin 100 MG in 0.9 % Sodium Chloride Mini Bag 100 ML IVPB SCH (11:01)
[2019-09-19] MEDS: Acetaminophen 325 MG TABLET PO PRN (19:43)
[2019-09-19] MEDS: traZODone 50 MG TABLET PO SCH (19:44)
[2019-09-19] MEDS: Melatonin 3 MG TABLET PO SCH (19:44)
[2019-09-20] MEDS: *HR* OxyCODONE Immed Rel 5 MG TABLET PO PRN ×4 (03:52→21:30)
[2019-09-20 06:04] LABS: eGFR For African Americans > 60 (> 60); eGFR For Non-African Americans 53 (> 60)
[2019-09-20] MEDS: Levothyroxine 25 MCG TABLET PO SCH (06:15)
[2019-09-20] MEDS: *HR* Heparin 5,000 UNIT/ML VIAL SQ SCH ×2 (06:16→17:16)
[2019-09-20] MEDS: Acetaminophen 325 MG TABLET PO PRN (06:16)
[2019-09-20] MEDS: Vancomycin 500 MG in 0.9 % Sodium Chloride Mini Bag 100 ML IVPB SCH (06:17)
[2019-09-20] MEDS: Aspirin Enteric Coated 81 MG Tablet PO SCH ×2 (08:32→21:28)
[2019-09-20] MEDS: Venlafaxine XR (24 HR) 37.5 MG CAP.ER.24H PO SCH (08:32)
[2019-09-20] MEDS: Ascorbic Acid 500 MG TABLET PO SCH (08:32)
[2019-09-20] MEDS: Pregabalin 50 MG CAPSULE PO SCH ×2 (08:32→21:29)
[2019-09-20] MEDS: Lisinopril 20 MG TABLET PO SCH (08:32)
[2019-09-20] MEDS: Lactobacillus 1 EACH CAP.SPRINK PO SCH ×2 (08:32→21:29)
[2019-09-20] MEDS: Loratadine 10 MG TABLET PO SCH (08:32)
[2019-09-20] MEDS: Isosorbide MONOnitrate (24 HR) 60 MG TAB.ER.24H PO SCH (08:32)
[2019-09-20] MEDS: Vancomycin Oral Soln 125 MG/2.5 ML UDC PO SCH ×2 (08:33→21:29)
[2019-09-20] MEDS: Trolamine Salicylate/Aloe Vera 85 APPL/85 GM TUBE TP SCH (08:33)
[2019-09-20] MEDS: Ertapenem 1,000 MG in 0.9 % Sodium Chloride Mini Bag 100 ML IVPB SCH (08:34)
[2019-09-20] MEDS: Micafungin 100 MG in 0.9 % Sodium Chloride Mini Bag 100 ML IVPB SCH (10:00)
[2019-09-20] MEDS: traZODone 50 MG TABLET PO SCH (21:29)
[2019-09-20] MEDS: Melatonin 3 MG TABLET PO SCH (21:29)
[2019-09-21] MEDS: *HR* OxyCODONE Immed Rel 5 MG TABLET PO PRN ×5 (03:10→21:38)
[2019-09-21] MEDS: Levothyroxine 25 MCG TABLET PO SCH (06:35)
[2019-09-21] MEDS: *HR* Heparin 5,000 UNIT/ML VIAL SQ SCH ×2 (06:35→17:31)
[2019-09-21] MEDS: Vancomycin 500 MG in 0.9 % Sodium Chloride Mini Bag 100 ML IVPB SCH (06:36)
[2019-09-21] MEDS: Acetaminophen 325 MG TABLET PO PRN ×3 (06:50→23:38)
[2019-09-21] MEDS: Vancomycin Oral Soln 125 MG/2.5 ML UDC PO SCH ×2 (08:32→21:37)
[2019-09-21] MEDS: Ertapenem 1,000 MG in 0.9 % Sodium Chloride Mini Bag 100 ML IVPB SCH (08:33)
[2019-09-21] MEDS: Loratadine 10 MG TABLET PO SCH (08:40)
[2019-09-21] MEDS: Lactobacillus 1 EACH CAP.SPRINK PO SCH ×2 (08:40→21:37)
[2019-09-21] MEDS: Trolamine Salicylate/Aloe Vera 85 APPL/85 GM TUBE TP SCH (08:40)
[2019-09-21] MEDS: Isosorbide MONOnitrate (24 HR) 60 MG TAB.ER.24H PO SCH (08:40)
[2019-09-21] MEDS: Venlafaxine XR (24 HR) 37.5 MG CAP.ER.24H PO SCH (08:41)
[2019-09-21] MEDS: Lisinopril 20 MG TABLET PO SCH (08:41)
[2019-09-21] MEDS: Aspirin Enteric Coated 81 MG Tablet PO SCH ×2 (08:41→21:37)
[2019-09-21] MEDS: Pregabalin 50 MG CAPSULE PO SCH ×2 (08:41→21:38)
[2019-09-21] MEDS: Ascorbic Acid 500 MG TABLET PO SCH (08:42)
[2019-09-21 09:27] LABS: Basophils # 0.1 K/mcL (0.0-0.2); Basophils % 0.9 %; Eosinophils # 0.6 K/mcL (0.0-0.6); Eosinophils % 11.4 %; Hematocrit 36.7 % (35.3-44.9); Hemoglobin 11.6 g/dL (11.5-15.4); Immature Granulocytes % 0.4 % (0-4); Lymphocytes # 1.2 K/mcL (0.6-4.6); Lymphocytes % 22.2 %; Mean Corpuscular HGB Conc 31.6 g/dL (31.6-35.5); Mean Corpuscular Hemoglobin 27.7 pg (28.0-33.3); Mean Corpuscular Volume 87.6 fL (83.0-100.0); Mean Platelet Volume 10.1 fL (9.4-12.4); Monocytes # 0.6 K/mcL (0.0-1.3); Neutrophils # 2.9 K/mcL (1.6-8.9); Platelet Count 297 K/mcL (140-400); Red Blood Count 4.19 M/mcL (3.82-4.97); Red Cell Distribution Width 15.9 % (11.5-14.5); Segmented Neutrophils % 54.1 %; White Blood Count 5.3 K/mcL (4.3-11.1)
[2019-09-21 09:46] LABS: BUN/Creatinine Ratio 22 (6-26); Blood Urea Nitrogen 22 mg/dL (8-23); Calcium 10.3 mg/dL (8.6-10.3); Carbon Dioxide 29 mEq/L (23-29); Chloride 99 mEq/L (98-107); Glucose 111 mg/dL (70-105); Osmolality,Calculated 282 (280-300); Potassium 4.6 mEq/L (3.5-5.1); Sodium 134 mEq/L (136-145); eGFR For African Americans > 60 (> 60); eGFR For Non-African Americans 56 (> 60)
[2019-09-21] MEDS: Micafungin 100 MG in 0.9 % Sodium Chloride Mini Bag 100 ML IVPB SCH (10:08)
[2019-09-21] MEDS: traZODone 50 MG TABLET PO SCH (21:38)
[2019-09-21] MEDS: Melatonin 3 MG TABLET PO SCH (21:38)
[2019-09-22 06:45] LABS: eGFR For African Americans > 60 (> 60); eGFR For Non-African Americans 57 (> 60)
[2019-09-22] MEDS: *HR* Heparin 5,000 UNIT/ML VIAL SQ SCH ×2 (06:51→16:57)
[2019-09-22] MEDS: Levothyroxine 25 MCG TABLET PO SCH (06:52)
[2019-09-22] MEDS: *HR* OxyCODONE Immed Rel 5 MG TABLET PO PRN ×4 (06:52→21:47)
[2019-09-22] MEDS: Vancomycin 500 MG in 0.9 % Sodium Chloride Mini Bag 100 ML IVPB SCH (07:39)
[2019-09-22] MEDS: Lisinopril 20 MG TABLET PO SCH (08:51)
[2019-09-22] MEDS: Pregabalin 50 MG CAPSULE PO SCH ×2 (08:51→20:26)
[2019-09-22] MEDS: Acetaminophen 325 MG TABLET PO PRN (08:51)
[2019-09-22] MEDS: Lactobacillus 1 EACH CAP.SPRINK PO SCH ×2 (08:51→20:25)
[2019-09-22] MEDS: Ascorbic Acid 500 MG TABLET PO SCH (08:51)
[2019-09-22] MEDS: Loratadine 10 MG TABLET PO SCH (08:52)
[2019-09-22] MEDS: Aspirin Enteric Coated 81 MG Tablet PO SCH ×2 (08:52→20:25)
[2019-09-22] MEDS: Isosorbide MONOnitrate (24 HR) 60 MG TAB.ER.24H PO SCH (08:52)
[2019-09-22] MEDS: Venlafaxine XR (24 HR) 37.5 MG CAP.ER.24H PO SCH (08:52)
[2019-09-22] MEDS: Trolamine Salicylate/Aloe Vera 85 APPL/85 GM TUBE TP SCH (08:53)
[2019-09-22] MEDS: Vancomycin Oral Soln 125 MG/2.5 ML UDC PO SCH ×2 (08:53→20:29)
[2019-09-22] MEDS: Ertapenem 1,000 MG in 0.9 % Sodium Chloride Mini Bag 100 ML IVPB SCH (08:53)
[2019-09-22] MEDS: Micafungin 100 MG in 0.9 % Sodium Chloride Mini Bag 100 ML IVPB SCH (10:57)
[2019-09-22] MEDS: Melatonin 3 MG TABLET PO SCH (20:26)
[2019-09-22] MEDS: traZODone 50 MG TABLET PO SCH (20:27)
[2019-09-22] MEDS: Ibuprofen 600 MG TABLET PO PRN (20:27)
[2019-09-23] MEDS: Levothyroxine 25 MCG TABLET PO SCH (06:18)
[2019-09-23] MEDS: *HR* Heparin 5,000 UNIT/ML VIAL SQ SCH ×2 (06:19→17:52)
[2019-09-23] MEDS: Vancomycin 500 MG in 0.9 % Sodium Chloride Mini Bag 100 ML IVPB SCH (06:49)
[2019-09-23] MEDS: *HR* OxyCODONE Immed Rel 5 MG TABLET PO PRN ×3 (09:37→20:32)
[2019-09-23] MEDS: Isosorbide MONOnitrate (24 HR) 60 MG TAB.ER.24H PO SCH (09:38)
[2019-09-23] MEDS: Venlafaxine XR (24 HR) 37.5 MG CAP.ER.24H PO SCH (09:38)
[2019-09-23] MEDS: Aspirin Enteric Coated 81 MG Tablet PO SCH ×2 (09:38→20:31)
[2019-09-23] MEDS: Ibuprofen 600 MG TABLET PO PRN (09:38)
[2019-09-23] MEDS: Loratadine 10 MG TABLET PO SCH (09:38)
[2019-09-23] MEDS: Lactobacillus 1 EACH CAP.SPRINK PO SCH ×2 (09:38→20:31)
[2019-09-23] MEDS: Pregabalin 50 MG CAPSULE PO SCH ×2 (09:38→20:31)
[2019-09-23] MEDS: Lisinopril 20 MG TABLET PO SCH (09:38)
[2019-09-23] MEDS: Ascorbic Acid 500 MG TABLET PO SCH (09:38)
[2019-09-23] MEDS: Ertapenem 1,000 MG in 0.9 % Sodium Chloride Mini Bag 100 ML IVPB SCH (09:39)
[2019-09-23] MEDS: Vancomycin Oral Soln 125 MG/2.5 ML UDC PO SCH ×2 (09:39→20:31)
[2019-09-23] MEDS: Trolamine Salicylate/Aloe Vera 85 APPL/85 GM TUBE TP SCH (10:04)
[2019-09-23] MEDS: Micafungin 100 MG in 0.9 % Sodium Chloride Mini Bag 100 ML IVPB SCH (10:52)
[2019-09-23] MEDS: Acetaminophen 325 MG TABLET PO PRN (17:52)
[2019-09-23] MEDS: Melatonin 3 MG TABLET PO SCH (20:31)
[2019-09-23] MEDS: traZODone 50 MG TABLET PO SCH (20:31)
[2019-09-24] MEDS: Ibuprofen 600 MG TABLET PO PRN ×2 (00:32→22:02)
[2019-09-24] MEDS: *HR* OxyCODONE Immed Rel 5 MG TABLET PO PRN ×5 (00:33→22:03)
[2019-09-24] MEDS: Venlafaxine XR (24 HR) 37.5 MG CAP.ER.24H PO SCH (06:35)
[2019-09-24] MEDS: *HR* Heparin 5,000 UNIT/ML VIAL SQ SCH ×2 (06:35→17:47)
[2019-09-24] MEDS: Vancomycin 500 MG in 0.9 % Sodium Chloride Mini Bag 100 ML IVPB SCH (06:36)
[2019-09-24] MEDS: Levothyroxine 25 MCG TABLET PO SCH (06:36)
[2019-09-24] MEDS: Loratadine 10 MG TABLET PO SCH (09:28)
[2019-09-24] MEDS: Lisinopril 20 MG TABLET PO SCH (09:28)
[2019-09-24] MEDS: Lactobacillus 1 EACH CAP.SPRINK PO SCH ×2 (09:28→20:39)
[2019-09-24] MEDS: Isosorbide MONOnitrate (24 HR) 60 MG TAB.ER.24H PO SCH (09:28)
[2019-09-24] MEDS: Pregabalin 50 MG CAPSULE PO SCH ×2 (09:28→20:39)
[2019-09-24] MEDS: Aspirin Enteric Coated 81 MG Tablet PO SCH ×2 (09:29→20:39)
[2019-09-24] MEDS: Acetaminophen 325 MG TABLET PO PRN ×2 (09:29→20:39)
[2019-09-24] MEDS: Ascorbic Acid 500 MG TABLET PO SCH (09:29)
[2019-09-24] MEDS: Ertapenem 1,000 MG in 0.9 % Sodium Chloride Mini Bag 100 ML IVPB SCH (09:30)
[2019-09-24] MEDS: Vancomycin Oral Soln 125 MG/2.5 ML UDC PO SCH ×2 (09:30→20:39)
[2019-09-24] MEDS: Trolamine Salicylate/Aloe Vera 85 APPL/85 GM TUBE TP SCH (09:30)
[2019-09-24] MEDS: Micafungin 100 MG in 0.9 % Sodium Chloride Mini Bag 100 ML IVPB SCH (10:39)
[2019-09-24] MEDS: traZODone 50 MG TABLET PO SCH (20:39)
[2019-09-24] MEDS: Melatonin 3 MG TABLET PO SCH (20:39)
[2019-09-25] MEDS: *HR* OxyCODONE Immed Rel 5 MG TABLET PO PRN ×4 (05:19→22:14)
[2019-09-25] MEDS: Levothyroxine 25 MCG TABLET PO SCH (05:19)
[2019-09-25] MEDS: Vancomycin 500 MG in 0.9 % Sodium Chloride Mini Bag 100 ML IVPB SCH (05:20)
[2019-09-25] MEDS: *HR* Heparin 5,000 UNIT/ML VIAL SQ SCH ×2 (05:20→16:53)
[2019-09-25 05:56] LABS: BUN/Creatinine Ratio 26 (6-26); Blood Urea Nitrogen 24 mg/dL (8-23); eGFR For African Americans > 60 (> 60); eGFR For Non-African Americans > 60 (> 60)
[2019-09-25] MEDS: Venlafaxine XR (24 HR) 37.5 MG CAP.ER.24H PO SCH (08:26)
[2019-09-25] MEDS: Ascorbic Acid 500 MG TABLET PO SCH (08:26)
[2019-09-25] MEDS: Vancomycin Oral Soln 125 MG/2.5 ML UDC PO SCH ×2 (08:26→22:12)
[2019-09-25] MEDS: Trolamine Salicylate/Aloe Vera 85 APPL/85 GM TUBE TP SCH (08:27)
[2019-09-25] MEDS: Lactobacillus 1 EACH CAP.SPRINK PO SCH ×2 (08:27→22:12)
[2019-09-25] MEDS: Lisinopril 20 MG TABLET PO SCH (08:27)
[2019-09-25] MEDS: Loratadine 10 MG TABLET PO SCH (08:27)
[2019-09-25] MEDS: Isosorbide MONOnitrate (24 HR) 60 MG TAB.ER.24H PO SCH (08:27)
[2019-09-25] MEDS: Aspirin Enteric Coated 81 MG Tablet PO SCH ×2 (08:27→22:12)
[2019-09-25] MEDS: Pregabalin 50 MG CAPSULE PO SCH ×2 (08:27→22:12)
[2019-09-25] MEDS: Ertapenem 1,000 MG in 0.9 % Sodium Chloride Mini Bag 100 ML IVPB SCH (10:09)
[2019-09-25] MEDS: Micafungin 100 MG in 0.9 % Sodium Chloride Mini Bag 100 ML IVPB SCH (11:13)
[2019-09-25] MEDS ORDERED: *HR* Dextrose 50 % in Water (Syg) 50 ML SYRINGE IVP ONE (17:01)
[2019-09-25] MEDS ORDERED: Aminoglycoside Consult 1 EACH MC ONE (17:09)
[2019-09-25] MEDS: traZODone 50 MG TABLET PO SCH (22:13)
[2019-09-25] MEDS: Ibuprofen 600 MG TABLET PO PRN (22:13)
[2019-09-25] MEDS: Melatonin 3 MG TABLET PO SCH (22:13)
[2019-09-26] MEDS: *HR* OxyCODONE Immed Rel 5 MG TABLET PO PRN ×3 (03:25→15:34)
[2019-09-26] MEDS: Levothyroxine 25 MCG TABLET PO SCH (06:31)
[2019-09-26] MEDS: Venlafaxine XR (24 HR) 37.5 MG CAP.ER.24H PO SCH (06:31)
[2019-09-26] MEDS: *HR* Heparin 5,000 UNIT/ML VIAL SQ SCH (06:32)
[2019-09-26] MEDS: Vancomycin 500 MG in 0.9 % Sodium Chloride Mini Bag 100 ML IVPB SCH (06:32)
[2019-09-26] MEDS: Ertapenem 1,000 MG in 0.9 % Sodium Chloride Mini Bag 100 ML IVPB SCH (07:43)
[2019-09-26] MEDS: Vancomycin Oral Soln 125 MG/2.5 ML UDC PO SCH (08:55)
[2019-09-26] MEDS: Lactobacillus 1 EACH CAP.SPRINK PO SCH (08:56)
[2019-09-26] MEDS: Aspirin Enteric Coated 81 MG Tablet PO SCH (08:56)
[2019-09-26] MEDS: Loratadine 10 MG TABLET PO SCH (08:56)
[2019-09-26] MEDS: Ascorbic Acid 500 MG TABLET PO SCH (08:56)
[2019-09-26] MEDS: Pregabalin 50 MG CAPSULE PO SCH (08:57)
[2019-09-26] MEDS: Trolamine Salicylate/Aloe Vera 85 APPL/85 GM TUBE TP SCH (08:57)
[2019-09-26] MEDS: Isosorbide MONOnitrate (24 HR) 60 MG TAB.ER.24H PO SCH (08:57)
[2019-09-26] MEDS: Micafungin 100 MG in 0.9 % Sodium Chloride Mini Bag 100 ML IVPB SCH (08:59)
[2019-09-26] MEDS: Lisinopril 20 MG TABLET PO SCH (09:05)
[2019-09-26 09:09] VITALS: BP 138/64
== END 2019-09-26 17:10 | disposition home or self-care (01) | DRG 945 ==
LOC: INPGRE 18:56
PROVIDERS: ADMIT Family Medicine; ATTEND Family Medicine